=== PATIENT | female | born 1965 | race Caucasian/White ===

== ENCOUNTER 2023-10-31 13:06 | Outpatient (OUT) | payer MEDICARE, OTHER, SELFPAY ==
--- NOTE | 2023-10-31 | XR_ITS ---
The [address] [address] Patient Name: ELIDA SWANN MRN: [id number] date: 1965 Sex: F Assigned Patient Location: Current Patient Location: Accession/Order Number: [id number] Exam Date: 10/31/2023 13:15 Report Date: 10/31/2023 14:24 At the request of: MERLIN KONG Procedure: XR foot TRINA min 3V EXAMINATION: XR foot TRINA min 3V, XR ankle TRINA min 3V HISTORY: BILATERAL FOOT PAIN COMPARISON: No relevant comparison available. FINDINGS: RIGHT FINDINGS: BONES: No acute fracture or dislocation. Moderate enthesopathic spurring of the calcaneus at the Achilles and plantar insertions. Lisfranc fracture dislocation of the foot with 5 mm lateral subluxation of the second metatarsal relation to the medial cuneiform. Moderate to severe degenerative change of the tarsometatarsal joints. Flattening of the plantar arch SOFT TISSUES: Negative. No visible soft tissue swelling. OTHER: Negative. LEFT FINDINGS: BONES: No acute fracture or dislocation. Mild degenerative changes with marginal osteophyte formation. Mild to moderate enthesopathic spurring of the calcaneus at the Achilles and plantar insertions SOFT TISSUES: Negative. No visible soft tissue swelling. OTHER: Negative. XR/XR foot TRINA min 3V IMPRESSION: RIGHT CONCLUSION: Moderate to severe degenerative changes, Lisfranc fracture dislocation and flattening of the plantar arch, likely chronic. LEFT CONCLUSION: Mild to moderate degenerative change Electronically authenticated by: DEEPIKA CORLEY Date: 10/31/2023 14:24
--- NOTE | 2023-10-31 | XR_ITS ---
The [address] [address] Patient Name: ELIDA SWANN MRN: [id number] date: 1965 Sex: F Assigned Patient Location: Current Patient Location: Accession/Order Number: [id number] Exam Date: 10/31/2023 13:15 Report Date: 10/31/2023 14:24 At the request of: MERLIN KONG Procedure: XR ankle TRINA min 3V EXAMINATION: XR foot TRINA min 3V, XR ankle TRINA min 3V HISTORY: BILATERAL FOOT PAIN COMPARISON: No relevant comparison available. FINDINGS: RIGHT FINDINGS: BONES: No acute fracture or dislocation. Moderate enthesopathic spurring of the calcaneus at the Achilles and plantar insertions. Lisfranc fracture dislocation of the foot with 5 mm lateral subluxation of the second metatarsal relation to the medial cuneiform. Moderate to severe degenerative change of the tarsometatarsal joints. Flattening of the plantar arch SOFT TISSUES: Negative. No visible soft tissue swelling. OTHER: Negative. LEFT FINDINGS: BONES: No acute fracture or dislocation. Mild degenerative changes with marginal osteophyte formation. Mild to moderate enthesopathic spurring of the calcaneus at the Achilles and plantar insertions SOFT TISSUES: Negative. No visible soft tissue swelling. OTHER: Negative. XR/XR ankle TRINA min 3V IMPRESSION: RIGHT CONCLUSION: Moderate to severe degenerative changes, Lisfranc fracture dislocation and flattening of the plantar arch, likely chronic. LEFT CONCLUSION: Mild to moderate degenerative change Electronically authenticated by: DEEPIKA CORLEY Date: 10/31/2023 14:24
== END 2023-10-31 13:07 | disposition home or self-care (01) ==
LOC: EC 13:06
PROVIDERS: Visit Provider Podiatrist Foot & Ankle Surgery
DX: M25.571 Pain in right ankle and joints of right foot (principal); M25.572 Pain in left ankle and joints of left foot; M19.072 Primary osteoarthritis, left ankle and foot; M19.071 Primary osteoarthritis, right ankle and foot
CPT/HCPCS: 73610; 73630